=== PATIENT | male | born 1970 | race Caucasian/White ===

== ENCOUNTER → 2020-07-09 09:35 | Outpatient (BNVA) | payer MEDICARE, MEDICAID, SELFPAY | PROVIDERS: PCP Family Medicine; Referring Provider Family Medicine; Visit Provider Specialist | DX: R56.9 Unspecified convulsions (principal); F17.210 Nicotine dependence, cigarettes, uncomplicated | CPT/HCPCS: 95816 ==

== ENCOUNTER → 2020-09-15 08:12 | Outpatient (BNVA) | payer MEDICARE, MEDICAID, SELFPAY | PROVIDERS: PCP Family Medicine; Referring Provider Family Medicine; Visit Provider Specialist | DX: G40.909 Epilepsy, unspecified, not intractable, without status epilepticus (principal); F17.200 Nicotine dependence, unspecified, uncomplicated; G80.9 Cerebral palsy, unspecified | CPT/HCPCS: 99205 ==

== ENCOUNTER → 2020-10-21 10:47 | Outpatient (BNVA) | payer MEDICARE, MEDICAID, SELFPAY | PROVIDERS: PCP Family Medicine; Visit Provider Specialist | DX: R55 Syncope and collapse (principal); R56.9 Unspecified convulsions; F17.210 Nicotine dependence, cigarettes, uncomplicated | CPT/HCPCS: 99214 ==

== ENCOUNTER → 2020-11-18 12:28 | Outpatient (BNVA) | payer MEDICARE, MEDICAID, SELFPAY | PROVIDERS: PCP Family Medicine; Referring Provider Specialist; Visit Provider Specialist | DX: F44.5 Conversion disorder with seizures or convulsions (principal); F17.210 Nicotine dependence, cigarettes, uncomplicated | CPT/HCPCS: 95816 ==

== ENCOUNTER 2020-11-20 10:31 | Outpatient (CLI) | payer MEDICARE, MEDICAID, SELFPAY ==
--- NOTE | 2020-11-20 11:00 | MR_ITS ---
WS: [id number] MRI HEAD WITHOUT CONTRAST TECHNIQUE: Sagittal T1, T2 axial, T2 axial FLAIR, axial and coronal T1 images, axial susceptibility w eighted imaging, axial diffusion weighted images, and coronal T2 images were obtained. CLINICAL INFORMATION: R56.9 - Unspecified convulsions COMPARISON: April 10, 2020 FINDINGS: No evidence of restricted diffusion to suggest acute ischemia. Ventricular system and basal cisterns are patent. Mild patchy supratentorial periventricular white matter changes more prominent along the right lateral ventricle. This is unchanged since April 10, 2020. Minimal white matter changes in the p ons. Normal posterior fossa. Normal vascular flow voids at the skull base. No extra-axial fluid collection s. Paranasal sinuses and mastoid air cells well aerated. Normal optic chiasm and pituitary infundibul um. Mild symmetric atrophy involving the temporal lobes and hippocampal formations. MR/MR head wo con* [id number] IMPRESSION: 1. No evidence of restricted diffusion to suggest acute ischemia. 2. Mild supratentorial periventricular white matter changes nonspecific in a p atient this age but can be seen with hypertension, diabetes, and migraine heada ches. This is unchanged since 04/2020 3. Mild symmetric atrophy involving the temporal lobes and hippocampal formati ons. No evidence of mesial temporal sclerosis or asymmetric hippocampal atrophy . 4. Normal optic chiasm and pituitary infundibulum. 5. No hemosiderin on susceptibly weighted images.
== END 2020-11-20 10:32 | disposition home or self-care (01) ==
LOC: RADSHAW 10:34
PROVIDERS: PCP Family Medicine; Visit Provider Specialist
DX: R56.9 Unspecified convulsions (principal); G31.9 Degenerative disease of nervous system, unspecified
CPT/HCPCS: 70551

== ENCOUNTER 2021-02-17 12:47 | Outpatient (CLI) | payer MEDICARE, MEDICAID, SELFPAY ==
--- NOTE | 2021-02-17 13:30 | CT_ITS ---
WS: [id number] CT CHEST WITHOUT CONTRAST HISTORY: J84.9 - Interstitial pulmonary disease, unspecified TECHNIQUE: High resolution chest CT performed in supine, prone, inspiration and expiration. All CT sc ans at [facility] use at least one of these dose optimization techniques: automated exposu re control; mA and/or kV adjustment per patient size (includes targeted exams where dose is matched t o clinical indication); or iterative reconstruction. CONTRAST: None DLP: 303.32 mGy.cm COMPARISON: 06/25/2020 Lungs and central airway: Good pulmonary expansion. During expiration there is no air trapping. Volum e loss results in mild interstitial thickening and mosaic attenuation. No nodules or mass. There is n o honeycombing or bronchiectasis. Distal airways very minimally thickened. Benign granuloma RIGHT low er lobe. Mild enlargement of the heart. No adenopathy. No hiatal hernia. Visualized soft tissues and osseous structures are normal. CT/CT chest wo con [id number] IMPRESSION: 1. No air trapping, bronchiectasis or honeycombing. 2. Very minimal peripheral thickening of the airways bilaterally. May represen t a mild acute inflammatory response within the distal airways or very mild ear ly developing interstitial lung disease.
== END 2021-02-17 12:48 | disposition home or self-care (01) ==
LOC: RAD 12:58
PROVIDERS: PCP Family Medicine; Visit Provider Internal Medicine Critical Care Medicine
DX: J84.9 Interstitial pulmonary disease, unspecified (principal)
CPT/HCPCS: 71250; 87635

== ENCOUNTER → 2021-03-02 11:02 | Outpatient (BNVA) | payer MEDICARE, MEDICAID, SELFPAY | PROVIDERS: PCP Family Medicine; Visit Provider Specialist | DX: F44.5 Conversion disorder with seizures or convulsions (principal); F17.210 Nicotine dependence, cigarettes, uncomplicated | CPT/HCPCS: 99215 ==

== ENCOUNTER 2021-04-28 08:47 | Outpatient (CLI) | payer MEDICARE, MEDICAID, SELFPAY ==
--- NOTE | 2021-04-28 08:52 | NMCV_ITS ---
NM nery perf SPECT r/s* [id number] William Logan Age: 51 Gender: M : 1970 Exam Date: 04/28/2021 09:56 Ordering Phys: Rosemary Arroyo MD ([email or web address]) Technologist: WANDA Restrepo Exam Location: [facility] Indications: CHEST PAIN STRESS TEST Please see separate stress test report in [facility] for full findings IMAGE PROTOCOL Rest/Stress 1 Lexiscan Day Radiopharmaceutical Dose (mCi) Administration Site Administered by Rest: Tc-99m 10.7 IV WANDA Barrios Sestamibi Stress:Tc-99m 32.5 IV WANDA Barrios Sestamibi Rest: 28-Apr-2021 60 Discovery 630 Stress: 28-Apr-2021 30 Discovery 630 0.4mg Lexiscan. Images obtained in supine and prone position. SPECT RESULTS Technical Quality: Excellent Raw Data Analysis: Normal Image Corrections: No attenuation or motion correction applied Summed Stress Score: 0 Summed Rest Score: 0 Summed Difference Score: 0 PERFUSION FINDINGS SPECT images demonstrate homogeneous tracer distribution throughout the myocardium. FUNCTIONAL RESULTS (calculated via Gated SPECT) Stress Image LV EF (%): 67 Stress EDV (mL):81 TID: 0.98 Stress ESV (mL):27 FUNCTIONAL FINDINGS: The left ventricle is normal in size. Transient Ischemia Dilatation of 0.98. There is normal left ventricular systolic function. The left ventricular ejection fraction is normal with a value of 67%. There is normal left ventricular wall thickening with no regional wall motion abnormality. IMPRESSIONS 1. Myocardial perfusion imaging is normal. 2. Overall left ventricular systolic function is normal without regional wall motion abnormalities. 3. The left ventricular ejection fraction is normal with a value of 67%. 4. Normal EKG response to Lexiscan infusion. 5. Scan indicates low risk for cardiac events. Rosemary Arroyo MD (Electronically Signed) Final Date: 30 April 2021 13:56 S
--- NOTE | 2021-04-28 08:52 | ECG_ITS ---
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 Interpretive Statements NAME OF STUDY: LEXISCAN SESTAMIBI STRESS TEST INDICATION: Chest Pain; Shortness of Breath PROCEDURE: At the baseline, the blood pressure was 148/101 mmHg with a heart rate of 67 bpm. The electrocardiogram showed normal sinus rhythm, normal axis with nonspecific T wave inversion. The Lexiscan was infused over a period of 20 seconds. A total of 0.4 milligrams of Lexiscan was infused. The stress phase was continued for a total of 5 minutes. Heart rate at the end of the stress phase was 85 bpm with a blood pressure of 144/94 mmHg. The EKG at the peak infusion revealed no significant ST-T wave changes. The study was terminated due to protocol completion. Sestamibi was injected 20 seconds after the Lexiscan infusion. Blood pressure at the end of the recovery phase was 149/95 mmHg with a heart rate of 84 beats per minute. CONCLUSION: 1. No significant EKG changes with the LexiScan infusion. 2. No LexiScan induced chest pain or cardiac arrhythmia. 3. Normal blood pressure and heart rate response. 4. Sestamibi/sestamibi perfusion scan pending; see separate report. Electronically Signed On 04-30-2021 13:55:36 CDT by Rosemary Arroyo M.D. [id number]
[2021-04-28 09:02] VITALS: BMI 29.9
[2021-04-28] MEDS: regadenoson 0.4 Mg/5 ml Syringe IVP (10:27)
[2021-04-28 10:59] VITALS: BP 149/95; PULSE 85
== END 2021-04-28 08:48 | disposition home or self-care (01) ==
LOC: CDL 08:49
PROVIDERS: PCP Family Medicine; Visit Provider Internal Medicine Cardiovascular Disease
DX: R07.9 Chest pain, unspecified (principal); R06.02 Shortness of breath
CPT/HCPCS: 78452; 93017; A9500; J2785

== ENCOUNTER → 2021-05-24 10:49 | Outpatient (BNVA) | payer MEDICARE, MEDICAID, SELFPAY | PROVIDERS: PCP Family Medicine; Visit Provider Specialist | DX: F44.5 Conversion disorder with seizures or convulsions (principal); G80.9 Cerebral palsy, unspecified; Z71.89 Other specified counseling; F17.210 Nicotine dependence, cigarettes, uncomplicated | CPT/HCPCS: 99214 ==

== ENCOUNTER → 2021-11-16 10:08 | Outpatient (BNVA) | payer MEDICARE, MEDICAID, SELFPAY | PROVIDERS: PCP Family Medicine; Visit Provider Specialist | DX: G43.909 Migraine, unspecified, not intractable, without status migrainosus (principal); F44.5 Conversion disorder with seizures or convulsions; F17.200 Nicotine dependence, unspecified, uncomplicated | CPT/HCPCS: 99214; G0463 ==

== ENCOUNTER → 2022-02-25 10:31 | Outpatient (BNVA) | payer MEDICARE, MEDICAID, SELFPAY | PROVIDERS: PCP Family Medicine; Visit Provider Internal Medicine Cardiovascular Disease | DX: I10 Essential (primary) hypertension (principal); R55 Syncope and collapse; F44.5 Conversion disorder with seizures or convulsions; J44.9 Chronic obstructive pulmonary disease, unspecified; F17.210 Nicotine dependence, cigarettes, uncomplicated; G80.9 Cerebral palsy, unspecified; K21.9 Gastro-esophageal reflux disease without esophagitis; Z79.82 Long term (current) use of aspirin | CPT/HCPCS: 99214 ==

== ENCOUNTER → 2022-05-17 12:45 | Outpatient (BNVA) | payer MEDICARE, MEDICAID, SELFPAY | PROVIDERS: PCP Family Medicine; Visit Provider Specialist | DX: F44.5 Conversion disorder with seizures or convulsions (principal); G43.711 Chronic migraine without aura, intractable, with status migrainosus; R68.89 Other general symptoms and signs; F17.210 Nicotine dependence, cigarettes, uncomplicated | CPT/HCPCS: 99214 ==

== ENCOUNTER → 2022-09-07 12:47 | Outpatient (BNVA) | payer MEDICARE, MEDICAID, SELFPAY | PROVIDERS: PCP Family Medicine; Visit Provider Specialist | DX: F44.5 Conversion disorder with seizures or convulsions (principal); G43.711 Chronic migraine without aura, intractable, with status migrainosus; R68.89 Other general symptoms and signs | CPT/HCPCS: 99213; 99214 ==

== ENCOUNTER → 2022-11-21 07:37 | Outpatient (BNVA) | payer MEDICARE, MEDICAID, SELFPAY | PROVIDERS: PCP Family Medicine; Visit Provider Specialist | DX: F44.5 Conversion disorder with seizures or convulsions (principal); G43.711 Chronic migraine without aura, intractable, with status migrainosus; R68.89 Other general symptoms and signs | CPT/HCPCS: 99214 ==

== ENCOUNTER → 2023-01-12 13:03 | Outpatient (BNVA) | payer MEDICARE, MEDICAID, SELFPAY | PROVIDERS: PCP Family Medicine; Visit Provider Specialist | DX: G43.711 Chronic migraine without aura, intractable, with status migrainosus (principal); R11.0 Nausea | CPT/HCPCS: 64615; 96372; J0585; J1885; J2405 ==

== ENCOUNTER → 2023-05-18 10:45 | Outpatient (BNVA) | payer MEDICARE, MEDICAID, SELFPAY | PROVIDERS: PCP Family Medicine; Visit Provider Specialist | DX: G43.711 Chronic migraine without aura, intractable, with status migrainosus (principal); F44.5 Conversion disorder with seizures or convulsions | CPT/HCPCS: 64615; 99213; J0585 ==

== ENCOUNTER → 2023-07-24 08:46 | Outpatient (BNVA) | payer MEDICARE, MEDICAID, SELFPAY | PROVIDERS: PCP Family Medicine; Visit Provider Nurse Practitioner Family | DX: I10 Essential (primary) hypertension (principal); R55 Syncope and collapse; F17.210 Nicotine dependence, cigarettes, uncomplicated | CPT/HCPCS: 99214 ==

== ENCOUNTER → 2023-08-17 10:11 | Outpatient (BNVA) | payer MEDICARE, MEDICAID, SELFPAY | PROVIDERS: PCP Family Medicine; Visit Provider Specialist | DX: F44.5 Conversion disorder with seizures or convulsions (principal); G43.711 Chronic migraine without aura, intractable, with status migrainosus | CPT/HCPCS: 64615; 99212 ==

== ENCOUNTER → 2023-11-23 11:58 | Outpatient (BNVA) | payer MEDICARE, MEDICAID, SELFPAY | PROVIDERS: PCP Family Medicine; Visit Provider Specialist | DX: G43.711 Chronic migraine without aura, intractable, with status migrainosus (principal); G80.2 Spastic hemiplegic cerebral palsy; F44.5 Conversion disorder with seizures or convulsions; R68.89 Other general symptoms and signs | CPT/HCPCS: 64615; 99212; J0585 ==

== ENCOUNTER → 2024-02-29 07:38 | Outpatient (BNVA) | payer MEDICARE, MEDICAID, SELFPAY | PROVIDERS: PCP Family Medicine; Visit Provider Specialist | DX: G43.711 Chronic migraine without aura, intractable, with status migrainosus (principal); F44.5 Conversion disorder with seizures or convulsions; G80.2 Spastic hemiplegic cerebral palsy; F40.298 Other specified phobia; J44.9 Chronic obstructive pulmonary disease, unspecified; I10 Essential (primary) hypertension; F17.200 Nicotine dependence, unspecified, uncomplicated; R06.02 Shortness of breath | CPT/HCPCS: 64615; 99213 ==

== ENCOUNTER → 2024-08-16 07:29 | Outpatient (BNVA) | payer MEDICARE, MEDICAID, SELFPAY | PROVIDERS: PCP Family Medicine; Visit Provider Specialist | DX: G43.711 Chronic migraine without aura, intractable, with status migrainosus (principal); F44.5 Conversion disorder with seizures or convulsions; G80.2 Spastic hemiplegic cerebral palsy; F40.298 Other specified phobia | CPT/HCPCS: 64615; 99212 ==

== ENCOUNTER → 2024-12-13 09:26 | Outpatient (BNVA) | payer MEDICARE, MEDICAID, SELFPAY | PROVIDERS: PCP Family Medicine; Visit Provider Specialist | DX: G43.711 Chronic migraine without aura, intractable, with status migrainosus (principal) | CPT/HCPCS: 64615; 99212 ==

== ENCOUNTER → 2025-02-28 10:40 | Outpatient (BNVA) | payer MEDICARE, MEDICAID, SELFPAY | PROVIDERS: PCP Family Medicine; Visit Provider Internal Medicine Cardiovascular Disease | DX: I10 Essential (primary) hypertension (principal); R07.9 Chest pain, unspecified; Z72.0 Tobacco use; R06.02 Shortness of breath | CPT/HCPCS: 99214 ==

== ENCOUNTER 2025-04-11 07:29 | Outpatient (CLI) | payer MEDICARE, MEDICAID, SELFPAY ==
--- NOTE | 2025-04-11 | ECG_ITS ---
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 The perfusion scan will be documented separately. DATA: Baseline heart rate was 72 beats per minute. Baseline blood pressure was 155/93 millimeters of mercury. Target heart rate was 166. Maximum heart rate achieved was 94. which was 56% of the predicted target heart rate. Maximum blood pressure was 169/93 millimeters of mercury. The reason for ending the test was completion of the protocol. The patient did not experience any symptoms. ELECTROCARDIOGRAM: BASELINE: Sinus rhythm. Normal axis. Otherwise, no ST-T changes suggestive of ischemia noted. No arrhythmia noted. EXERCISE: After Lexiscan injection, no ST-T changes suggestive of ischemic noted. No arrhythmia noted. CONCLUSION: Please note due to baseline abnormality of the EKG specificity and sensitivity of the EKG portion of LexiScan MIBI stress test will be low 1. EKG not suggestive of ischemia 2. Lexiscan injection unremarkable. 3. Perfusion scan will be documented separately. Electronically Signed On 04-13-2025 20:13:39 CDT by ANITA GALVEZ [email or web address]
[2025-04-11 07:34] VITALS: BMI 29.8
--- NOTE | 2025-04-11 07:37 | NMCV_ITS ---
NM nery perf SPECT r/s* [id number] William Logan Age: 55 Gender: M : 1970 Exam Date: 04/11/2025 08:35 Ordering Phys: Anita Escalante MD ([email or web address]) Technologist: WANDA Covington Exam Location: [facility] Indications: CP STRESS TEST [facility] IMAGE PROTOCOL Rest/Stress 1 Lexiscan Day Radiopharmaceutical Dose (mCi) Administration Site Administered by Rest: Tc-99m 10.7 IV WANDA Covington Sestamibi Stress:Tc-99m 32.9 IV WANDA Barrios Sestamibi Rest: 11-Apr-2025 60 Discovery 630 Stress: 11-Apr-2025 30 Discovery 630 0.4mg Lexiscan. Images obtained in supine and prone position. SPECT RESULTS Technical Quality: Good Raw Data Analysis: Normal Image Corrections: No attenuation or motion correction applied Summed Stress Score: 1 Summed Rest Score: 0 Summed Difference Score: 1 PERFUSION FINDINGS There is a small to medium sized area of reversible perfusion defect seen in the inferior wall. This is consistent with small to medium sized area of ischemia in the RCA territory. FUNCTIONAL RESULTS (calculated via Gated SPECT) Stress Image LV EF (%): 73 Stress EDV (mL):82 TID: 1.02 Stress ESV (mL):22 FUNCTIONAL FINDINGS: There is normal left ventricular systolic function. IMPRESSIONS 1. Small to medium sized area of ischemia seen in the RCA terrirory. 2. LV systolic function is normal Lorenzo Adamson MD (Electronically Signed) Final Date: 15 April 2025 12:32 S
[2025-04-11] MEDS: regadenoson 0.4 Mg/5 ml Syringe IVP (09:05)
[2025-04-11 09:17] VITALS: BP 168/84; PULSE 86
--- NOTE | 2025-04-11 12:45 | USCV_ITS ---
William Logan Age: 55 Gender: M : 1970 Exam Date: 04/11/2025 10:14 Ordering Phys: Anita Escalante MD ([email or web address]) Technologist: FLAKITA [place] [facility] Indication: SoB, CP BP: 110 / 80 HR: 70 Rhythm: Sinus Technical Quality: Adequate MEASUREMENTS (Male / Female) Normal Values 2D ECHO LV Diastolic Diameter PLAX 5.2 cm 4.2 - 5.9 / 3.9 - 5.3 cm IVS Diastolic Thickness 0.9 cm 0.6 - 1.0 / 0.6 - 0.9 cm IVS Systolic Thickness 1.4 cm LVPW Diastolic Thickness 1.0 cm 0.6 - 1.0 / 0.6 - 0.9 cm LVPW Systolic Thickness 1.6 cm LVOT Diameter 2.0 cm LV Ejection Fraction 2D Teich 60.6 % LV Ejection Fraction MOD 4C 54.1 % LV Ejection Fraction MOD 2C 65.6 % LV Ejection Fraction 2C AL 67.4 % LA Diameter 3.9 cm RA Systolic Volume 4C AL 37.3 ml RA Systolic Volume 4C MOD 34.8 ml LA Sys Volume AL 28.2 cm cubed LA Sys Volume Index AL 13.2 cm cubed/m squared Aorta at Sinotubular Diameter 2.7 cm IVC Diameter 1.5 cm M-MODE LA Ao Ratio MM 1.5 AV Cusp Separation MM 1.3 cm DOPPLER AV Peak Velocity 111.0 cm/s LVOT Peak Velocity 107.0 cm/s AV Area Cont Eq vti 3.7 cm squared AV Area Cont Eq pk 3.1 cm squared MV Peak Velocity 91.0 cm/s MV Area PHT 4.7 cm squared TV Peak Velocity 174.0 cm/s TR Peak Velocity 221.0 cm/s TR Peak Gradient 19.5 mmHg TV Peak E Velocity 79.0 cm/s FINDINGS Left Ventricle Normal left ventricular size, systolic function and wall thickness, with no regional wall motion abnormalities. Left ventricular ejection fraction is estimated at 60 %. Grade I/IV diastolic dysfunction (abnormal relaxation filling pattern), normal to mildly elevated filling pressures. Right Ventricle The right ventricle is normal in size and function. Right Atrium The right atrium is normal in size. Left Atrium The left atrium is normal in size. Mitral Valve Moderately thickened mitral valve. No mitral valve stenosis. Mild mitral valve regurgitation. Aortic Valve Structurally normal aortic valve without significant sclerosis or stenosis. There is no aortic regurgitation. Tricuspid Valve Structurally normal tricuspid valve without significant stenosis or regurgitation. Pulmonary artery systolic pressure is normal. Pulmonic Valve Trace pulmonary valve regurgitation. Pericardium Normal pericardium without effusion. Aorta Normal ascending aorta dimension. IVC The inferior vena cava appears normal. CONCLUSIONS Normal left ventricular size, systolic function and wall thickness, with no regional wall motion abnormalities. Left ventricular ejection fraction is estimated at 60 %. Grade I/IV diastolic dysfunction (abnormal relaxation filling pattern), normal to mildly elevated filling pressures. Moderately thickened mitral valve. No mitral valve stenosis. Mild mitral valve regurgitation. There is no pericardial effusion. Right atrial pressure is around 5 mm of mercury. Anita Escalante MD (Electronically Signed) Final Date: 14 April 2025 22:13 S
== END 2025-04-11 07:30 | disposition home or self-care (01) ==
PROVIDERS: PCP Family Medicine; Visit Provider Internal Medicine Cardiovascular Disease
DX: R07.9 Chest pain, unspecified (principal); R06.02 Shortness of breath; R93.1 Abnormal findings on diagnostic imaging of heart and coronary circulation; I34.0 Nonrheumatic mitral (valve) insufficiency
CPT/HCPCS: 36415; 78452; 93017; 93306; 96374; A9500; J2785

== ENCOUNTER → 2025-05-15 07:24 | Outpatient (BNVA) | payer MEDICARE, MEDICAID, SELFPAY | PROVIDERS: PCP Family Medicine; Visit Provider Specialist | DX: G43.711 Chronic migraine without aura, intractable, with status migrainosus (principal) | CPT/HCPCS: 36415; 64615; 80048; 85025; 85610; 99212; J9999 ==

== ENCOUNTER → 2025-06-10 14:54 | Outpatient (BNVA) | payer OTHER, MEDICAID, SELFPAY | PROVIDERS: PCP Family Medicine; Visit Provider Internal Medicine Cardiovascular Disease | DX: R07.9 Chest pain, unspecified (principal); I10 Essential (primary) hypertension; F17.210 Nicotine dependence, cigarettes, uncomplicated; R58 Hemorrhage, not elsewhere classified; R94.39 Abnormal result of other cardiovascular function study; I20.0 Unstable angina | CPT/HCPCS: 99214 ==

== ENCOUNTER 2025-06-12 07:29 | Outpatient (CLI) | payer OTHER, MEDICAID, SELFPAY ==
[2025-06-12 07:56] LABS: Hematocrit 36.7 % (37-53); Hemoglobin 12.20 g/dL (11.27-16.99); Mean Corpuscular HGB Conc 33.2 g/dL (30-55); Mean Corpuscular Hemoglobin 28.2 pg (27-33); Mean Corpuscular Volume 84.8 fl (82-101); Nucleated Red Blood Cells % 0 %; Platelet Count 313 10^3/cmm (157-399); Red Blood Count 4.33 10^6/uL (3.85-5.65); White Blood Count 10.83 10^3/uL (3.29-11.43)
[2025-06-12 08:14] LABS: Anion Gap 13.5 (5-19); Blood Urea Nitrogen 10 mg/dL (6-20); Calcium 9.1 mg/dL (8.5-10.5); Carbon Dioxide 28 mmol/L (22-29); Chloride 99 mmol/L (98-107); Glucose 105 mg/dL (65-115); Osmolality Calculated 283 mOsm/kg (285-295); Potassium 3.5 mmol/L (3.5-5.1); Sodium 137 mmol/L (136-145)
[2025-06-12 08:21] LABS: INR 0.91 (0.83-1.21)
== END 2025-06-12 07:30 | disposition home or self-care (01) ==
PROVIDERS: PCP Family Medicine; Visit Provider Internal Medicine Cardiovascular Disease
DX: I10 Essential (primary) hypertension (principal); R94.39 Abnormal result of other cardiovascular function study; R58 Hemorrhage, not elsewhere classified
CPT/HCPCS: 80048; 85025; 85610

== ENCOUNTER → 2025-07-02 16:23 | Outpatient (BNVA) | payer OTHER, MEDICAID, SELFPAY | PROVIDERS: PCP Family Medicine; Visit Provider Internal Medicine Cardiovascular Disease | DX: I25.10 Atherosclerotic heart disease of native coronary artery without angina pectoris (principal); I10 Essential (primary) hypertension; F17.210 Nicotine dependence, cigarettes, uncomplicated; Z95.5 Presence of coronary angioplasty implant and graft; R07.9 Chest pain, unspecified; R94.39 Abnormal result of other cardiovascular function study; R58 Hemorrhage, not elsewhere classified | CPT/HCPCS: 36415; 80048; 85025; 85610; 99214 ==

== ENCOUNTER 2025-07-21 08:30 | Outpatient (CLI) | payer OTHER, MEDICAID, SELFPAY ==
[2025-07-21] VITALS (11 sets, daily range): BP systolic 98–159; BP diastolic 62–85; PULSE 75–105; RESP 14–19; TEMP 36.4–36.6; O2SAT 91–97; BMI 34.2
--- NOTE | 2025-07-21 08:58 | XACV_ITS ---
Exam Room: 2 Ht: 168 cm Wt: 96 kg BSA: 2.15 m2 Gender: Male : 1970 Any Known Allergies: Other Exam Priority: Routine Procedure(s): Procedure Description: Diagnostic procedure Procedure Description: PCI procedure Procedure Description: Drug Eluting Coronary Stent Procedure Description: PTCA Procedure Description: Miscellaneous Procedure Description: ACT Procedure Description[facility] Diagnostic Cath Status: Elective Diagnostic Findings * Left Main has no disease. * Proximal Left Anterior Descending: significant 80% stenosis, KINGSLEY: 3 flow. * Proximal Right Coronary Artery: severe 90% stenosis, KINGSLEY: 3 flow. * Distal Right Coronary Artery: luminal irregularities 20% stenosis, KINGSLEY: 3 flow. * Distal Circumflex: luminal irregularities 20% stenosis, KINGSLEY: 3 flow. * Coronary angiography shows right dominance. PCI Status: Elective Interventional Findings * Proximal Left Anterior Descendin% stenosis treated with a AB TREK 2.50X20 RX BALLOON, PAOLO Lantigua PIERRE 3.5X26 BHARATH, and PAOLO JEAN-BAPTISTE EUPHORA RX 4.58K01EH BALLOON. 0% residual stenosis, KINGSLEY: 3 flow. * Proximal Right Coronary Artery: 90% stenosis treated with a AB TREK 2.50X12 RX BALLOON, PAOLO Lantigua PIERRE 4.0X18 BHARATH, and PAOLO JEAN-BAPTISTE EUPHORA RX 4.65B58YD BALLOON. 0% residual stenosis, KINGSLEY: 3 flow. Conclusions 1. There is severe coronary artery disease with three vessel disease. 2. Proximal Left Anterior Descending was treated with a Balloon, Drug Eluting Stent, and Balloon. 3. Proximal Right Coronary Artery was treated with a Balloon, Drug Eluting Stent, and Balloon. Recommendations * 1-Return to inpatient for close monitoring and routine cath care 2-Risk factor modification for secondary prevention 3-Statin and aspirin 81 mg life-long, if tolerated 4-Patient was pre-loaded with 600 mg of Plavix, continue Plavix 75mg p.o. daily for at least one year. We will assess at the end of one year again to continue if further or not 5-Continue optimal medical management 6-Follow up with Dr. Escalante in four weeks and your primary care in 10 days. Diagnostic RX Recommendation: PCI w/o planned CABG Pressures Phase:Rest AO : 128 / 86 ( 98 ) @ 11:45:00 AM 104 / 80 ( 92 ) @ 12:05:00 PM 111 / 71 ( 86 ) @ 12:19:00 PM 128 / 97 ( 113 ) @ 12:28:00 PM Clinical Evaluation EBL: 5mL-10mL Procedural Details Procedure Consent Obtained. Pre-Procedure Time Out. Identified patient by full name and date of as verbalized by the patient/guarantor. Does the consent match the physician's order: Yes. Accurate & Complete Informed Consent: Yes. Inpatient/Outpatient History & Physical on Chart: Yes. If H&P is completed, is and addenduem needed: No. Visualize and Verify Site with Patient/Guarantor: N/A. Relevant Radiology Images available: Yes. The risks, benefits, and alternatives of sedation and/or procedure were discussed by physician. The patient agrees to continue. Procedure started. 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 Chest Pain Symptom Assessment: Typical Angina Symptoms. Cardiovascular Instability: No. Correct patient, site and procedure confirmed by cath team. PERRLA. Strong, equal hand dj instructor bilaterally. Lungs clear x 5 lobes. IV Site on Arrival: 18 gauge in the left forearm. IV Site on Arrival: 20 gauge in the right anticubital. IV Fluids: 0.9% NaCl at KVO. 400 mL infused prior to geochemical laboratory technician. Pre Procedural Pulses: bilateral dorsalis pedis was 2+. Pre Procedural Pulses: bilateral posterior tibial was 3+. Pre Procedural Pulses: bilateral radial was 3+. Oxygen started at 2liters/min via nasal canula. right groin was prepped with chloroprep then draped in the usual sterile fashion. right radial was prepped with chloroprep then draped in the usual sterile fashion. Physician notified. Patient's family in CPRU room #4. Dr. Escalante will update at the completion of the prrocedure. Equipment: 6F - Radial. Cardiac Cath Pack. ACIST Manifold Kit Model BT 2000. Heparinized Saline (2 units/mL), 1000 mL bag. Baseline sample Acquired. HR: 103 BPM. Physician arrived. Physician scrubbed in. Immediate Pre-Procedure Time Out. Correct Patient: Yes; Correct Procedure: Yes; Correct Site: Yes; Correct Patient Position: Yes; Correct Supplies: Yes; Dried Flammable Prep: Yes; Blood Products Available: N/A;. Lidocaine 1% infiltrated to the right radial. Arterial access obtained. A 5 hong konger TIG catheter in over the exchange J wire. Cine of the LCA performed. Catheter removed over the exchange J wire. A 5 hong konger Torey catheter in over th exchange J wire. Multiple views taken of left coronary artery. Catheter redirected to the RCA. Catheter removed over the exchange J wire. A 5 hong konger JR4 catheter in over the exchange J wire. Multiple views taken of right coronary artery. Catheter removed over the exchange J wire. PCI Indication: CAD (without ischemic symptoms). 6 hong konger AL 0.75 guide catheter was inserted over the exchange J wire. Runthrough guidewire was advanced through the guide catheter to lesion in the mid RCA. ACT drawn. Results 276 seconds. Therapeutic limits - pre-heparin administration 90-150 seconds and monitoring heparin during a vascular procedure >250 seconds. Inflation number : 1 A AB TREK 2.50X12 RX BALLOON was prepped and advanced across the Mid RCA , then inflated to 14 RISSA for 0:15 seconds. Balloon out. Inflation Number : 2 A PAOLO Lantigua PIERRE 4.0X18 BHARATH -Lot Number# [id number] Exp. . was prepped and advanced across the Mid RCA. The stent was deployed at 12 RISSA for 0:19 seconds. Stent balloon out over wire. Inflation number : 3 A MDT NC EUPHORA RX 4.75S37VV BALLOON was prepped and advanced across the Mid RCA , then inflated to 14 RISSA for 0:15 seconds. Inflation number: 4 The MDT NC EUPHORA RX 4.96L57IO BALLOON was reinflated across the Mid RCA, to 16 RISSA for 0:15 seconds. Balloon out. Results checked. Guide catheter out over the exchange J wire. Wire out. 6 hong konger XB 3.5 guide catheter was inserted over the exchange J wire. ACT drawn. Results 278 seconds. Therapeutic limits - pre-heparin administration 90-150 seconds and monitoring heparin during a vascular procedure >250 seconds. Guide catheter out over the exchange J wire. 6 hong konger JL 4 guide catheter was inserted over the exchange J wire. Runthrough #1 guidewire was advanced through the guide catheter to lesion in the prox LAD. Runthrough #2 guidewire was advanced through the guide catheter and advanced down the CX. Inflation number : 1 A AB TREK 2.50X20 RX BALLOON was prepped and advanced across the Prox LAD , then inflated to 14 RISSA for 0:17 seconds. Balloon out. Inflation Number : 2 A MDT R PIERRE 3.5X26 BHARATH -Lot Number# [id number] Exp. was prepped and advanced across the Prox LAD. The stent was deployed at 14 RISSA for 0:20 seconds. Stent balloon out over wire. Inflation number : 3 A MDT NC EUPHORA RX 4.81A36RN BALLOON was prepped and advanced across the Prox LAD , then inflated to 12 RISSA for 0:19 seconds. Inflation number: 4 The MDT NC EUPHORA RX 4.91V15ZK BALLOON was reinflated across the Prox LAD, to 14 RISSA for 0:20 seconds. Inflation number: 5 The MDT NC EUPHORA RX 4.21K08EH BALLOON was reinflated across the Prox LAD, to 14 RISSA for 0:16 seconds. Balloon out. Runthrough #2 out. Results checked. Runthrough #1 out. ACT drawn. Results 295 seconds. Therapeutic limits - pre-heparin administration 90-150 seconds and monitoring heparin during a vascular procedure >250 seconds. Guide catheter out over the exchange J wire. Dr. Escalante scrubbed out. A TR Band was unsuccessful obtaining hemostatsis at the Right Radial artery insertion site. Vital chart was stopped. Post Procedure: Pulses reassessed and unchanged. PERRLA. Strong, equal hand dj instructor bilaterally. No VTE prophylaxis required. Medication's Wasted: Lidocaine 1% = 18 mL. Medication's Wasted: Nitro = 49.3 mg. Medication's Wasted: Other = Versed 1 mg. Medication's Wasted: Other = Fentanyl 50 mcg. Medication's Wasted: Heparin = 1000 units. Total IV fluids: 165 mL. Post-op diagnosis: BHARATH x 1 to Mid RCA, BHARATH x 1 to Prox LAD. Complications: none. Estimated blood loss: 5mL-10mL. Responsiveness - Normal response to verbal stimuli; alert and oriented, PERRLA. Airway - Unaffected, no intervention required; spontaneous ventilation. Circulation: W/N/L, pulses unchanged. Nausea/Vomiting: No. Procedure completed. Patient transferred by wheelchair to 1st floor. Access Site Site: Right Radial artery Sheath Size: 6 Fr Hemostasis Method: TR Band Hemostasis Success: Unsuccessful Procedure Medications Start: 10:28 AM Stop: 10:28 AM Medication: Versed Amount: 2 mg Route: I.V. Start: 10:28 AM Stop: 10:28 AM Medication: Fentanyl Amount: 50 mcg Route: I.V. Start: 10:33 AM Stop: 10:33 AM Medication: Fentanyl Amount: 25 mcg Route: I.V. Start: 10:34 AM Stop: 10:34 AM Medication: Fentanyl Amount: 25 mcg Route: I.V. Start: 10:40 AM Stop: 10:40 AM Medication: Nitrogylcerin Amount: 100 mcg Route: S.Q. Start: 10:40 AM Stop: 10:40 AM Medication: Versed Amount: 1 mg Route: I.V. Start: 10:42 AM Stop: 10:42 AM Medication: Nitrogylcerin Amount: 200 mcg Route: I.A. Start: 10:44 AM Stop: 10:44 AM Medication: Heparin Amount: 5000 units Route: I.V. Start: 11:06 AM Stop: 11:06 AM Medication: Heparin Amount: 2000 units Route: I.V. Start: 11:18 AM Stop: 11:18 AM Medication: Nitrogylcerin Amount: 200 mcg Route: I.C. Start: 11:33 AM Stop: 11:33 AM Medication: Heparin Amount: 3000 units Route: I.V. Start: 11:34 AM Stop: 11:34 AM Medication: Versed Amount: 1 mg Route: I.V. Start: 11:43 AM Stop: 11:43 AM Medication: Versed Amount: 1 mg Route: I.V. Start: 11:43 AM Stop: 11:43 AM Medication: Fentanyl Amount: 50 mcg Route: I.V. Start: 11:58 AM Stop: 11:58 AM Medication: Nitrogylcerin Amount: 200 mcg Route: I.C. Start: 12:03 PM Stop: 12:03 PM Medication: Plavix Amount: 600 mg Route: P.O. I, the attending physician, have reviewed and verified all procedure medications. Yes, all medications given per verbal order History/Risk Factors Hypertension: Yes Dyslipidemia: No Peripheral Arterial Disease (PAD): No Myocardial Infarction (NC): No Obesity: Yes Renal Disease: No Tobacco Use: Never Prior Interventions PCI: No CABG: No Valve Surgery: No Report Signatures Finalized by Anita Escalante MD on 08/06/2025 07:25 PM
[2025-07-21 09:12] LABS: Hematocrit 38.0 % (37-53); Hemoglobin 12.80 g/dL (11.27-16.99); Mean Corpuscular HGB Conc 33.7 g/dL (30-55); Mean Corpuscular Hemoglobin 29.0 pg (27-33); Mean Corpuscular Volume 86.0 fl (82-101); Nucleated Red Blood Cells % 0 %; Platelet Count 328 10^3/cmm (157-399); Red Blood Count 4.42 10^6/uL (3.85-5.65); White Blood Count 13.53 10^3/uL (3.29-11.43)
[2025-07-21 09:34] LABS: Anion Gap 14.4 (5-19); Blood Urea Nitrogen 10 mg/dL (6-20); Calcium 9.0 mg/dL (8.5-10.5); Carbon Dioxide 28 mmol/L (22-29); Chloride 98 mmol/L (98-107); Glucose 97 mg/dL (65-115); Osmolality Calculated 283 mOsm/kg (285-295); Potassium 3.4 mmol/L (3.5-5.1); Sodium 137 mmol/L (136-145)
--- NOTE | 2025-07-21 10:16 | W.PM.OPSUD ---
Surgery/Procedure H&P Update DATE OF PROCEDURE: July 21, 2025 DATE H&P PERFORMED: 07/02/25 H&P UPDATE INFORMATION: I have reviewed H&P completed within last 30 days, I have examined patient prior to procedure and No changes to prior documentation PREOP DIAGNOSIS: Chest pain/abnormal stress test PRIMARY INDICATION FOR PROCEDURE: Abnormal stress test/chest pain PLANNED PROCEDURE: Operation Date: 07/21/25 10:00 Proposed Procedures p Cardiac Catheterization - C w/wo LV & Coros(Left) - Anita Escalante MD PATIENT REASSESSED PRIOR TO SEDATION, WITH NO CHANGE NOTED: Yes PHYSICAL EXAM: alert, oriented x 3, clear to auscultation bilaterally, regular rate & rhythm and operative site marked AIRWAY EVAL/ANESTHESIA PLAN: ASA II, Risks, benefits & alternatives of sedation and/or procedure discussed and Patient agrees to continue as planned ADDITIONAL INFORMATION: Patient has been explained all risk-benefit and alternative for the procedure. Patient understand 2% risk of stroke major bleed. Patient understand 5% risk of minor bleeding bruising infection hematoma contrast-induced nephropathy urgent emergent vascular or bypass surgery. Patient clearly understood and would like to proceed with it.
--- NOTE | 2025-07-21 12:07 | P.PCN_ITS ---
Procedure Note: Date of procedure: 07/21/25 Pre-procedure diagnosis: Angina/abnormal stress Procedure: Left heart cath/PCI Coronary angiogram with performed noted to have high-grade significant proximal RCA and high-grade significant proximal LAD stenosis Left main has luminal regular LCx has luminal irregularity without significant stenosis PCI to proximal RCA and PCI to proximal LAD with 2 drug-eluting stent postdilated with noncompliant balloon. Excellent angiographic result with KINGSLEY- 3 flow was noted. Patient was noted to have coronary spasm relieved with nitroglycerin intracoronary Plan: Patient was loaded with 600 mg of Plavix and aspirin 81 mg Continue home medications IV fluid 100 mL/h for next 10 hours Check CBC BMP in the Possible discharge in the morning Full note to be dictated Coding Level of Care Code Acute Code for Efren Frederick
--- NOTE | 2025-07-21 12:34 | PC.NURSE ---
patient arrived on the floor from laboratory supervisor at 1225. Family at bedside. TR band in place with 16ml of air. No hematoma noted. Report taken from Rhea Salinas RN.
--- NOTE | 2025-07-21 12:36 | PC.NURSE ---
see vitals for post cardiac cath flowsheet charted under Vitals .
--- NOTE | 2025-07-21 15:24 | PC.NURSE ---
Tr band removed at 1524. No hematoma noted. 2x2 gauze and tegaderm placed over puncture site.
[2025-07-22 03:34] LABS: Hematocrit 37.5 % (37-53); Hemoglobin 12.20 g/dL (11.27-16.99); Mean Corpuscular HGB Conc 32.5 g/dL (30-55); Mean Corpuscular Hemoglobin 28.0 pg (27-33); Mean Corpuscular Volume 86.2 fl (82-101); Nucleated Red Blood Cells % 0 %; Platelet Count 295 10^3/cmm (157-399); Red Blood Count 4.35 10^6/uL (3.85-5.65); White Blood Count 11.24 10^3/uL (3.29-11.43)
[2025-07-22 03:54] LABS: Anion Gap 15.7 (5-19); Blood Urea Nitrogen 11 mg/dL (6-20); Calcium 8.8 mg/dL (8.5-10.5); Carbon Dioxide 26 mmol/L (22-29); Chloride 98 mmol/L (98-107); Creatinine Clr Calc Pharmacy 101.8527; Glucose 108 mg/dL (65-115); Osmolality Calculated 282 mOsm/kg (285-295); Potassium 3.7 mmol/L (3.5-5.1); Sodium 136 mmol/L (136-145)
[2025-07-22 07:29] VITALS: BP 162/99; PULSE 94; RESP 18; TEMP 36.3; O2SAT 96
--- NOTE | 2025-07-22 09:00 | P.DS_ITS ---
<Statement entered by Anita Escalante MD - 08/03/25 22:54> Patient was evaluated and cared for in conjunction with an advanced practice practitioner. I personally examined the patient and reviewed the chart and all pertinent data including imaging, telemetry, and laboratory results. I discussed the patient in detail with the advanced practice practitioner. Please see their note for complete H&P testing result and agreed upon plan of care for the patient. Discharge Providers Date of Admission: 07/21/2025 Date of Discharge: July 22, 2025 Attending Provider at Admission: Anita Escalante MD Attending Provider at Discharge: Anita Escalante MD Primary Care Provider: Ayad Vazquez MD Reason for Visit Reason for Visit: R94.39 Brief History: William Logan is a 55-year-old male with past medical history of hypertension, coronary artery disease with previous RCA stent, COPD, anxiety and depression. Due to symptoms of chest pain and abnormal stress test with ischemia in the RCA territory, coronary angiogram was recommended. Hospital Course Hospital Course He was brought yesterday for coronary angiogram, finding significant proximal RCA and proximal LAD stenosis which were treated with BHARATH x 2. Recommended to continue aspirin, Plavix for at least 1 year. No complications with right radial cath site, no chest pain overnight or this morning. He appears euvolemic. Blood pressure has been elevated however he has not taken his home medications here. Will plan to discharge home today, restart metoprolol and losartan/HCTZ, continue atorvastatin 80 mg daily, continue Imdur 60 mg daily. Follow-up with cardiology clinic in 2 weeks. Physical Exam Const: COMMON NORMALS: no acute distress and patient oriented x3 GENERAL APPEARANCE: cooperative ORIENTATION/CONSCIOUSNESS: Yes awake, Yes oriented to person, Yes oriented to place and Yes oriented to time Chest: COMMONS NORMALS: normal inspection of the chest and normal palpation of entire chest wall CHEST: Yes Symmetrical chest wall rise Resp: COMMON NORMALS: normal respiratory effort, No retractions, No use of accessory muscles and clear to auscultation bilaterally AUSCULTATION: clear to auscultation bilaterally Cardio: COMMON NORMALS: regular rate, regular rhythm, S1 normal heart sound present, S2 normal heart sound present, No gallops present (Cardio), No clicks present (Cardio), No murmurs present (Cardio) and No rub (Cardio) RATE: regular rate RHYTHM: regular rhythm HEART SOUNDS: S1 normal heart sound present and S2 normal heart sound present PERIPHERAL PULSES: radial pulses present positive right 2+ and femoral pulses present positive right 2+ Neuro: COMMON NORMALS: patient oriented x3 and moves all extremities S ENSORIUM/ORIENTATION: Yes oriented to person, Yes oriented to place and Yes oriented to time Skin: WOUNDS: Yes surgical site (no hematoma palpable) Details: no odor Discharge Data Studies Completed and Pending Pending at discharge Category Date Time 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 Routine Exams 07/21/25 08:58 Taken Laboratory Results WBC 11.24 10^3/uL (3.29-11.43) 07/22/25 03:19 RBC 4.35 10^6/uL (3.85-5.65) 07/22/25 03:19 Hgb 12.20 g/dL (11.27-16.99) 07/22/25 03:19 Hct 37.5 % (37-53) 07/22/25 03:19 MCV 86.2 fl (82-101) 07/22/25 03:19 MCH 28.0 pg (27-33) 07/22/25 03:19 MCHC 32.5 g/dL (30-55) 07/22/25 03:19 RDW 13.8 % (12.1-15.1) 07/22/25 03:19 Plt Count 295 10^3/cmm (157-399) 07/22/25 03:19 MPV 9.0 fL (7.4-10.4) 07/22/25 03:19 Neut % (Auto) 72.8 % 07/22/25 03:19 Lymph % (Auto) 17.9 % 07/22/25 03:19 [place] % (Auto) 6.5 % 07/22/25 03:19 Eos % (Auto) 1.8 % 07/22/25 03:19 Baso % (Auto) 0.4 % 07/22/25 03:19 Neut # (Auto) 8.19 10^3/uL (1.8-7.7) H 07/22/25 03:19 Lymph # (Auto) 2.0 10^3/uL (0.8-4.8) 07/22/25 03:19 [place] # (Auto) 0.7 10^3/uL (0.2-0.9) 07/22/25 03:19 Eos # (Auto) 0.2 10^3/uL (0.0-0.8) 07/22/25 03:19 Baso # (Auto) 0.0 10^3/uL (0.0-0.1) 07/22/25 03:19 Nucleated RBC % (auto) 0 % 07/22/25 03:19 Nucleated RBCs # 0.0 /100WBC 07/22/25 03:19 Sodium 136 mmol/L (136-145) 07/22/25 03:19 Potassium 3.7 mmol/L (3.5-5.1) 07/22/25 03:19 Chloride 98 mmol/L (98-107) 07/22/25 03:19 Carbon Dioxide 26 mmol/L (22-29) 07/22/25 03:19 Anion Gap 15.7 (5-19) 07/22/25 03:19 BUN 11 mg/dL (6-20) 07/22/25 03:19 Creatinine 0.9 mg/dL (0.7-1.2) 07/22/25 03:19 GFR Calculation 87.9 mL/min (90-130) L 07/22/25 03:19 Glucose 108 mg/dL (65-115) 07/22/25 03:19 Calculated Osmolality 282 mOsm/kg (285-295) L 07/22/25 03:19 Calcium 8.8 mg/dL (8.5-10.5) 07/22/25 03:19 Vitals Last Vital Signs Temp 97.3 F L 07/22/25 07:29 Pulse 90 07/22/25 09:33 Resp 20 H 07/22/25 09:33 BP 162/99 07/22/25 09:33 Pulse Ox 97 07/22/25 09:33 O2 Del Method Room Air 07/21/25 15:41 Discharge Plan Discharge Patient Disposition: Home Prescriptions: New atorvastatin 40 mg Tablet 80 mg PO BEDTIME Qty: 90 1RF clopidogrel 75 mg Tablet 75 mg PO DAILY Qty: 90 3RF aspirin 81 mg Tablet,Delayed Release (Dr/Ec) 81 mg PO DAILY Qty: 90 3RF Continued diphenhydramine HCl [Allergy (diphenhydramine)] 25 mg capsule 50 mg PO DAILY omeprazole 40 mg capsule,delayed release(DR/EC) 40 mg PO DAILY fluticasone propionate [Flonase Allergy Relief] 50 mcg/actuation spray,suspension 1 spray INTRANASAL DAILY Rx Instructions: administer into each nostril albuterol sulfate [ProAir HFA] 90 mcg/actuation HFA aerosol inhaler 2 puff INHALATION Q6H PRN (Reason: Wheezing) metoprolol succinate 200 mg tablet extended release 24 hr 100 mg PO DAILY isosorbide mononitrate 60 mg tablet extended release 24 hr 60 mg PO DAILY losartan-hydrochlorothiazide 50-12.5 mg tablet 1 tab PO DAILY Qty: 30 3RF edsvidgezkw-wydxyllba-gsyysjat [Trelegy Ellipta] 100-62.5-25 mcg blister with device See Rx Instructions .ROUTE .COMPLEX Qty: 60 3RF Dose Instruction: INHALE 1 PUFF BY MOUTH EVERY 24 HOURS Rx Instructions: INHALE 1 PUFF BY MOUTH EVERY 24 HOURS sumatriptan succinate 100 mg tablet See Rx Instructions .ROUTE .COMPLEX Qty: 9 0RF Dose Instruction: TAKE 1 TABLET BY MOUTH AT ONSET OF HEADACHE. IF NO RELIEF, MAY REPEAT 1 TABLET AFTER AT LEAST 2 HOURS. MAX 2 TABLETS IN 24 HOURS. Rx Instructions: TAKE 1 TABLET BY MOUTH AT ONSET OF HEADACHE. IF NO RELIEF, MAY REPEAT 1 TABLET AFTER AT LEAST 2 HOURS. MAX 2 TABLETS IN 24 HOURS. venlafaxine 150 mg capsule,extended release 24hr See Rx Instructions .ROUTE .COMPLEX Qty: 30 0RF Dose Instruction: TAKE 1 CAPSULE BY MOUTH DAILY Rx Instructions: TAKE 1 CAPSULE BY MOUTH DAILY nitroglycerin 0.4 mg tablet, sublingual 0.4 mg sublingual Q5M PRN (Reason: chest pain) Qty: 25 2RF Rx Instructions: do not exceed 3 doses per episode potassium chloride [K-Tab] 20 mEq tablet extended release 20 meq PO DAILY Qty: 30 6RF Rx Instructions: Take 1 tablet BID x3 days, then after that take once daily Discharge Order = DC NOW: Discharge Order (Routine); Ordered 07/22/25 Ordered By: Alisson Man Referrals: Anita Escalante MD [Physician, Cardiology] - 07/30/25 3:30 pm Ayad Vazquez MD [Primary Care Provider, Family Practice] - 07/24/25 12:15 pm Diet: Advance as tolerated and Cardiac Activity: Increase activity as tolerated Patient Instructions: Aspirin (By mouth), Atorvastatin (By mouth), Clopidogrel (By mouth), Heart Catheterization (DC), Chest Pain Stoplight, Post Angiogram Home Care Instructions Activity Restrictions/Additional Instructions: No lifting over 5 pounds with right arm for 4 days. Print Language: Tamazight Discharge Attestations Time Spent in Discharge Care*: less than 30 min Quality Metrics Clinical Quality Measures [ No reported AMI, CVA or VTE this stay] Coding Level of Care Code Acute Code for Chg Otoniel
[2025-07-22 09:33] VITALS: BP 162/99; PULSE 90; RESP 20; O2SAT 97
--- NOTE | 2025-07-22 10:59 | PC.NURSE ---
discharge instructions given and explained.pt verb understanding of instructions.discharge prescriptions given via meds to beds program.awaiting pt's spouse for transportation.
[2025-07-22 11:18] VITALS: BP 163/96; TEMP 36.3
--- NOTE | 2025-07-22 11:48 | PC.NURSE ---
pt's spouse here .discharged via w/c to exit at this time.
== END 2025-07-22 11:49 | disposition home or self-care (01) ==
LOC: CCL 08:36 → CSU 12:28
PROVIDERS: PCP Family Medicine; Visit Provider Internal Medicine Cardiovascular Disease
DX: I25.118 Atherosclerotic heart disease of native coronary artery with other forms of angina pectoris (principal); I10 Essential (primary) hypertension; E66.9 Obesity, unspecified; Z68.34 Body mass index [BMI] 34.0-34.9, adult; K21.9 Gastro-esophageal reflux disease without esophagitis; J44.9 Chronic obstructive pulmonary disease, unspecified; F41.8 Other specified anxiety disorders; F17.210 Nicotine dependence, cigarettes, uncomplicated
CPT/HCPCS: 36415; 80048; 85025; 85347; 93454; 99152; 99153; C1725; C1769; C1874; C1887; C1894; C9600; J1644; J2250; J3010; J3490; J7030; J9999; Q0163; Q9967

== ENCOUNTER → 2025-07-30 13:51 | Outpatient (BNVA) | payer OTHER, MEDICAID, SELFPAY | PROVIDERS: PCP Family Medicine; Visit Provider Internal Medicine Cardiovascular Disease | DX: I10 Essential (primary) hypertension (principal); E78.5 Hyperlipidemia, unspecified; I25.9 Chronic ischemic heart disease, unspecified; I34.0 Nonrheumatic mitral (valve) insufficiency; I25.10 Atherosclerotic heart disease of native coronary artery without angina pectoris; F17.210 Nicotine dependence, cigarettes, uncomplicated | CPT/HCPCS: 99214 ==

== ENCOUNTER → 2025-08-21 09:27 | Outpatient (BNVA) | payer OTHER, MEDICAID, SELFPAY | PROVIDERS: PCP Family Medicine; Visit Provider Specialist | DX: G43.711 Chronic migraine without aura, intractable, with status migrainosus (principal) | CPT/HCPCS: 64615; 99213; J9999 ==

== ENCOUNTER → 2025-09-05 10:47 | Outpatient (BNVA) | payer OTHER, MEDICAID, SELFPAY | PROVIDERS: PCP Family Medicine; Visit Provider Internal Medicine Cardiovascular Disease | DX: I25.10 Atherosclerotic heart disease of native coronary artery without angina pectoris (principal); I10 Essential (primary) hypertension; E78.5 Hyperlipidemia, unspecified; F17.210 Nicotine dependence, cigarettes, uncomplicated | CPT/HCPCS: 99214 ==